=== PATIENT | male | born 1985 | race Caucasian/White ===

== ENCOUNTER 2020-03-26 17:41 | Emergency (ER) | payer MEDICAID, SELFPAY ==
[~2020-03-26] VITALS: Ht 172.7 cm; Wt 83.9 kg
[2020-03-26 17:52] VITALS: Ht 172.7 cm; Wt 83.9 kg
[2020-03-26 19:43] VITALS: BP 124/75
== END 2020-03-26 19:43 | disposition home or self-care (01) ==
LOC: ED 17:41
DX: F45.8 Other somatoform disorders (principal)
CPT/HCPCS: J1885